=== PATIENT | male | born 1975 | race Caucasian/White ===

== ENCOUNTER 2017-08-11 17:48 | Emergency (ER) | payer MEDICAID, OTHER ==
[2017-08-11 17:57] VITALS: BP 158/103; PULSE 95; RESP 16; TEMP 98.1; O2SAT 100
--- NOTE | 2017-08-11 18:14 | ED PDOC ---
HPI: Abdomen Time Seen by Provider: 08/11/17 18:12 Chief Complaint (Nursing): Groin Pain Chief Complaint (Provider): RIGHT INGUINAL SWELLING History Per: Patient (41 Y/O MALE HERE WITH SWELLING IN RIGHT INGUINAL REGION INTERMITTENT WITH COUGHING AND IMPROVED WITH LAYING DOWN. DENIES ANY DYSURIA/ HEMATURIA/FEVER/CHILLS/VOMITING. HAS HAD INTERMITTENT BACK PAIN WELL.) Past Medical History Reviewed: Historical Data, Nursing Documentation, Vital Signs Vital Signs: Last Vital Signs Temp 98.1 F 08/11/17 17:54 Pulse 95 H 08/11/17 17:54 Resp 16 08/11/17 17:54 BP 158/103 H 08/11/17 17:54 Pulse Ox 100 08/11/17 17:54 - Medical History PMH: Anxiety, Back Problems, HTN, Hypercholesterolemia (no longer on meds for this) - Surgical History Surgical History: Tonsillectomy - Family History Family History: States: [place] (Mother from [place] in 50s) - Immunization History Hx Tetanus Toxoid Vaccination: No Hx Influenza Vaccination: No Hx Pneumococcal Vaccination: No - Home Medications Home Medications: Ambulatory Orders Medication Instructions Recorded Ibuprofen [Motrin] 600 mg PO Q8 PRN #21 tab 08/11/17 - Allergies Allergies/Adverse Reactions: Allergies Allergy/AdvReac Type Severity Reaction Status Date / Time Penicillins Allergy RASH Verified 02/05/16 20:19 Review of Systems ROS Statement: Except As Marked, All Systems Reviewed And Found Negative Physical Exam - Reviewed Nursing Documentation Reviewed: Yes Vital Signs Reviewed: Yes - Physical Exam Appears: Positive for: Well, Non-toxic, No Acute Distress Head Exam: Positive for: ATRAUMATIC, NORMAL INSPECTION, NORMOCEPHALIC Skin: Positive for: Normal Color, Warm, DRY Eye Exam: Positive for: EOMI, Normal appearance, PERRL ENT: Positive for: Normal ENT Inspection Neck: Positive for: Normal, Painless ROM Cardiovascular/Chest: Positive for: Regular Rate, Rhythm Respiratory: Positive for: CNT, Normal Breath Sounds Gastrointestinal/Abdominal: Positive for: Normal Exam, Soft, Other (RIGHT SUPRAPUBIC SWELLING NOTED WITH COUGHING IMPROVED WITH REDUCTION.). Negative for : Tenderness Back: Positive for: Normal Inspection Extremity: Positive for: Normal ROM Neurologic/Psych: Positive for: Alert, Oriented - ECG O2 Sat by Pulse Oximetry: 100 Disposition - Clinical Impression Clinical Impression: Inguinal hernia, right - Patient ED Disposition Is Patient to be Admitted: No - Disposition Referrals: Nazario Patel MD [Staff Provider] - [facility] [Outside] Disposition: Routine/Home Disposition Time: 18:15 Condition: FAIR Prescriptions: Ibuprofen [Motrin] 600 mg PO Q8 PRN #21 tab PRN Reason: Pain, Moderate (4-7) Instructions: Inguinal and Femoral (Groin) Hernias
== END 2017-08-11 18:48 | disposition home or self-care (01) ==
LOC: H.ER 17:48
DX: K40.90 Unilateral inguinal hernia, without obstruction or gangrene, not specified as recurrent (principal)

== ENCOUNTER 2017-08-30 10:10 | Day surgery (SDC) | payer MEDICAID ==
[2017-08-29 15:14] VITALS: BMI 24.3
[2017-08-30 11:44] LABS: BLOOD UREA NITROGEN 21 mg/dl (9-20); CALCIUM 9.6 mg/dL (8.4-10.2); GFR AFRICAN-AMERICAN > 60; GFR NON-AFRICAN AMERICAN > 60
[2017-08-30 12:03] LABS: BARBITURATES, UR NEGATIVE (NEGATIVE); BENZODIAZEPINES, UR NEGATIVE (NEGATIVE); OPIATES, UR NEGATIVE (NEGATIVE); PHENCYCLIDINE, UR NEGATIVE (NEGATIVE)
[2017-08-30] MEDS ORDERED: Clindamycin 600mg/50ml NS 600 MG/50 ML BAG IVPB ONE (12:14)
[2017-08-30] MEDS ORDERED: Lactated Ringer's 1,000 ML IV ONE (12:38)
[2017-08-30] MEDS ORDERED: Succinylcholine 200 mg/10 ml Inj IV ONE (12:38)
[2017-08-30] MEDS ORDERED: Propofol 10 mg/ml Inj (20 ML) ONE (12:38)
[2017-08-30] MEDS ORDERED: Midazolam 2 MG/2 ML VIAL ONE (12:38)
[2017-08-30] MEDS ORDERED: Bupivacaine HCl 0.5% PF (30 ml) Inj ONE (13:09)
[2017-08-30] MEDS ORDERED: HYDROmorphone 0.5 mg/0.5 ml ISec IVP PRN (14:11)
--- NOTE | 2017-08-30 14:13 | PCM.SURG1 ---
Surgeon's Initial Post Op Note - Surgeon's Notes Surgeon: Jorge Service Crew Supervisor: PGY4, Flip PGY2 Type of Anesthesia: General Endo, Block Regional Pre-Operative Diagnosis: R inguinal hernia Operative Findings: R indirect inguinal hernia Post-Operative Diagnosis: R indirect inguinal hernia Operation Performed: R indirect inguinal hernia repair with mesh Specimen/Specimens Removed: hernia sac Estimated Blood Loss: EBL {In ML}: 20 Blood Products Given: N/A Drains Used: No Drains Post-Op Condition: Good Date of Surgery/Procedure: 08/30/17 Time of Surgery/Procedure: 13:00
[2017-08-30] MEDS ORDERED: Lactated Ringer's 1,000 ML IV SCH (14:15)
[2017-08-30] MEDS ORDERED: Oxycodone/Acetaminophen 5/325 mg Tab PO PRN (14:18)
--- NOTE | 2017-08-30 14:22 | PCM.ANESB5 ---
Transverse Abdominis Block - Transverse Abdominis Plane Date of Procedure: 08/30/17 Anesthesiologist: Dr. Sanches Pre-Procedure Diagnosis: S/P right inguinal hernia repair Post-Procedure Diagnosis: S/P right inguinal hernia repair Procedure Performed: Transverse Abdominis Plane Nerve Block Right - Procedure Transverse Abdominis Plane Nerve Block: The procedure was explained to the patient by Dr. Gonzalez that it is for post- operative pain management and would be performed after surgery. Consent was obtained prior to surgery after a thorough discussion with the patient regarding the benefits and possible complications of transverse abdominis plane block. After the surgery had concluded and before the patient emerged from general anesthesia, time-out was held with the circulating nurse to re-confirm the appropriate block. With the patient in supine position, the ultrasound probe was placed transverse to the abdominal wall at the mid-axillary line above the iliac crest of the appropriate side. The skin, subcutaneous tissue, fat, external oblique muscle, internal oblique muscle, and the transverse abdominis muscle were identified. The general area of the block site was then prepped with Chloraprep solution. At this point, a # 20-gauge Stimuplex 4-inch needle was inserted posterior to and in plane with the ultrasound probe and directed anteriorly. Needle was advanced under direct ultrasound visualization until it reached the plane between the internal oblique and transverse abdominis muscles. After appropriate placement, 2mL of local anesthetic solution was injected. When the transverse abdominis plane was observed expanding in an ellipsoid way, the rest of the solution was slowly injected. A total of 20mL of 0.5% Bupivacaine was used for this block. The needle was then removed and sterile dressing was applied. The patient had stable vital signs throughout and had no untoward complications after emergence from general anesthesia. Then transported to recovery room.
[2017-08-30] MEDS ORDERED: Lactated Ringer's 500 ML IV PRN (14:40)
[2017-08-30 15:29] VITALS: RESP 18; O2SAT 99
[2017-08-30 16:26] VITALS: BP 123/87; PULSE 68; TEMP 97.4
--- NOTE | 2017-08-31 15:05 | OP ---
PROCEDURE DATE: 08/30/2017 SURGEON: Nazario Patel MD ASSISTANTS: Dr. Castelan and Dr. Duckworth. ANESTHESIA: General. ANESTHESIOLOGIST: Kwame Sanches MD PREOPERATIVE DIAGNOSIS: Right inguinal hernia. POSTOPERATIVE DIAGNOSIS: Right inguinal hernia. PROCEDURE: Right inguinal hernia repair with mesh. DESCRIPTION OF OPERATION: With the patient in the supine position under adequate general anesthesia, the right groin was prepped and draped in the usual sterile manner. A transverse incision was made over the right upper groin crease and taken down through the subcutaneous tissue. The external oblique layer was identified and opened from the external inguinal ring to the internal inguinal ring. The spermatic cord was dissected as it passed over the pubic tubercle and elevated over a Cowley drain and examination of the inguinal floor did not reveal any gross herniation. The spermatic cord was then dissected and an indirect hernia sac was identified and dissected free of the underlying cord structures back to the level of the internal inguinal ring. The sac was opened and noted to pass into the peritoneum. There were no contents to the sac at the time of surgery. The sac was suture ligated with 0 Vicryl at the level of the internal ring and the remainder of the sac was excised. After the sac had been ligated, it was noted that the internal inguinal ring was mildly enlarged and a size small plug was placed well up into the internal ring medial to the spermatic cord and sutured beneath the transversalis with two stitches of 2-0 Prolene. The flat mesh portion of the proloop hernia system was then trimmed to approximate the inguinal floor and the mesh was positioned beneath the spermatic cord and sutured medially to the area of the pubic tubercle and then superiorly to the transversalis fascia and inferiorly to the shelving edge of the inguinal ligament using the sutures previously placed at the internal ring and supplemented with additional sutures of 2-0 Prolene with sutures continuing laterally beyond the internal ring. The external oblique was then re-approximated over the spermatic cord and the repair using running suture of 0 Vicryl and after hemostasis, the subcutaneous tissues were approximated with 3-0 Vicryl interrupted sutures and closure was performed with running subcuticular suture of 4-0 Monocryl and Steri-Strips. Dry sterile dressing was applied. The patient tolerated the procedure well and transferred to the recovery room in stable condition. Estimated blood loss for the procedure was 10 mL. Nazario Patel MD
== END 2017-08-30 16:40 | disposition home or self-care (01) ==
LOC: H.OPSURG 10:10
PROVIDERS: ATTEND Specialist
DX: K40.90 Unilateral inguinal hernia, without obstruction or gangrene, not specified as recurrent (principal); E78.5 Hyperlipidemia, unspecified; I10 Essential (primary) hypertension
CPT/HCPCS: 36415; 49505; 80048; 80324; 80345; 80346; 80349; 80353; 80358; 80361; 83992; 88302; 93005; J0330; J1885; J2001; J2250; J2704; J2765; J3010; J7120

== ENCOUNTER 2018-09-01 14:36 | Emergency (ER) | payer MEDICAID, OTHER ==
[2018-09-01 14:36] VITALS: BMI 24.3
[2018-09-01] MEDS ORDERED: Morphine 4 MG/ML VIAL IVP STA (14:54)
[2018-09-01 15:16] LABS: BASO # 0.1 K/uL (0.0-0.2); BASO % 0.7 % (0.0-2.0); EOS # 0.1 K/uL (0.0-0.7); EOS % 1.4 % (0.0-4.0); HEMOGLOBIN 14.9 g/dL (12.0-18.0); LYMPH # 1.1 K/uL (1.0-4.3); LYMPH % 15.2 % (20.0-40.0); MEAN CELL VOLUME 82.7 fl (80.0-94.0); MEAN CORPUSCULAR HEMOGLOBIN 26.7 pg (27.0-31.0); MEAN CORPUSCULAR HGB CONC 32.3 g/dL (33.0-37.0); MEAN PLATELET VOLUME 7.6 fl (7.2-11.7); MONO # 0.4 K/uL (0.0-0.8); MONO % 5.3 % (0.0-10.0); NEUT # 5.8 K/uL (1.8-7.0); NEUT % 77.4 % (50.0-75.0); NRBC % 0.1 % (0.0-0.0); RBC 5.57 Mil/uL (4.40-5.90); RED CELL DISTRIBUTION WIDTH 17.9 % (11.5-14.5); WHITE BLOOD COUNT 7.5 K/uL (4.8-10.8)
[2018-09-01 15:23] LABS: INR 0.9; PROTHROMBIN TIME 10.3 Seconds (9.8-13.1)
[2018-09-01 15:26] LABS: PARTIAL THROMBOPLASTIN TIME 29.1 Seconds (25.6-37.1)
[2018-09-01 15:32] LABS: ALB/GLOB RATIO 1.4 (1.0-2.1); ALT/SGPT 57 U/L (21-72); AST/SGOT 58 U/L (17-59); BLOOD UREA NITROGEN 14 mg/dl (9-20); CALCIUM 8.7 mg/dL (8.4-10.2); GFR NON-AFRICAN AMERICAN > 60
[2018-09-01] MEDS ORDERED: Sodium Chloride 0.9% 50 ML IV ONE (15:37)
[2018-09-01] MEDS ORDERED: Iodixanol 320 MG/ML 100 ML BOTTLE IV ONE (15:37)
[2018-09-01] MEDS ORDERED: Sodium Chloride 0.9% 1,000 ML IV STA (16:10)
[2018-09-01] MEDS ORDERED: Morphine 4 MG/ML VIAL ONE ×2 (16:12→17:44)
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
--- NOTE | 2018-09-01 16:41 | RAD ---
Date of service: 09/01/2018 HISTORY: Chest pain COMPARISON: 02/05/2016. FINDINGS: LUNGS: No active pulmonary disease. PLEURA: No significant pleural effusion identified, no pneumothorax apparent. CARDIOVASCULAR: No atherosclerotic calcification present Normal. OSSEOUS STRUCTURES: No significant abnormalities. VISUALIZED UPPER ABDOMEN: Normal. OTHER FINDINGS: None. IMPRESSION: No active disease.
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
[2018-09-01 16:45] VITALS: PULSE 84; O2SAT 99
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
[2018-09-01 17:14] LABS: SQUAMOUS EPITHIAL < 1 /hpf (0-5); URINE BILIRUBIN NEGATIVE (NEGATIVE); URINE BLOOD SMALL (NEGATIVE); URINE CLARITY CLEAR (Clear); URINE COLOR YELLOW (YELLOW); URINE GLUCOSE (UA) NEG (NEGATIVE); URINE LEUKOCYTE ESTERASE NEG Leu/uL (Negative); URINE PROTEIN NEGATIVE (NEGATIVE); URINE UROBILINOGEN 0.2-1.0 mg/dL (0.2-1.0)
[2018-09-01 17:37] VITALS: BP 137/91; RESP 20; TEMP 98.1
[2018-09-01] MEDS ORDERED: Morphine 4 MG/ML VIAL IVP ONE (17:42)
[2018-09-01 18:00] LABS: BARBITURATES, UR NEGATIVE (NEGATIVE); BENZODIAZEPINES, UR NEGATIVE (NEGATIVE); OPIATES, UR POSITIVE (NEGATIVE); PHENCYCLIDINE, UR NEGATIVE (NEGATIVE)
--- NOTE | 2018-09-02 13:04 | CARD ---
APPROVED REPORT Date of service: 09/01/2018 EKG Measurement Heart [id number] CT [id number] <Conclusion> Normal sinus rhythm Minimal voltage criteria for LVH, may be normal variant Borderline ECG
== END 2018-09-01 17:51 | disposition short-term general hospital (02) ==
LOC: H.ER 14:36
DX: S35.298A Other injury of branches of celiac and mesenteric artery, initial encounter (principal); V28.0XXA Motorcycle driver injured in noncollision transport accident in nontraffic accident, initial encounter; Y99.9 Unspecified external cause status; Z86.59 Personal history of other mental and behavioral disorders; I12.9 Hypertensive chronic kidney disease with stage 1 through stage 4 chronic kidney disease, or unspecified chronic kidney disease; N18.9 Chronic kidney disease, unspecified; Z87.442 Personal history of urinary calculi; Z88.0 Allergy status to penicillin
CPT/HCPCS: 70450; 71045; 71250; 72125; 73030; 73080; 73130; 74177; 80053; 81003; 85025; 85610; 85730; 86850; 86900; 93005; 96361; 96374; 96375; 96376; 99285; G0480; J2270; J2405; J7030; Q9967